=== PATIENT | female | born 1940 | race Caucasian/White ===

== ENCOUNTER → 2020-01-18 10:24 | Outpatient (CLI) | payer MEDICARE, OTHER, SELFPAY ==
--- NOTE | ~2020-01-18 | MR_ITS ---
EXAMINATION: MR brain/brain stem wo/w con EXAM DATE: 01/18/2020 11:22 INDICATION: Left leg tremors for months. Headaches intermittent. TECHNIQUE: Magnetic resonance imaging (MRI) of the brain/brain stem obtained without contrast. Sagit eber T1, axial diffusion, gradient echo (T2*), T1, T2, FLAIR sequences obtained. Patient was then inj ected with 13 cc intravenous Multihance contrast. Axial and coronal postcontrast T1 weighted sequence s obtained. There is no prior study for comparison. FINDINGS: Punctate focus of increased DWI signal in left basal ganglia, probably T2 shine through. Th ere are no areas of restricted diffusion to suggest acute infarction. There is no acute hemorrhage s een on the T2*, a hemosiderin sensitive sequence. No intraparenchymal brain mass lesion. There is mi ld periventricular and subcortical T2/FLAIR signal hyperintensity, nonspecific but probably related t o small vessel ischemic disease (microangiopathy). There are no extra-axial collections. Flow voi ds are seen in the cerebral arteries on the T2-weighted sequences consistent with their expected badillo ncy. Patient has had bilateral ocular lens surgery. Soft tissue is unremarkable. IMPRESSION: Unremarkable brain MRI examination. Reviewed, dictated and finalized at location A.
[2020-01-18 11:05] LABS: Estimated Glomerular Filt Rate > 60
== END ==
PROVIDERS: PCP Family Medicine; Referring Provider Family Medicine; Visit Provider Family Medicine
DX: R25.1 Tremor, unspecified (principal)
CPT/HCPCS: 36415; 70553; A9577

== ENCOUNTER 2020-02-02 09:00 | Outpatient (CLI) | payer MEDICARE, OTHER, SELFPAY ==
--- NOTE | 2020-02-02 10:00 | NEURO_ITS ---
Patient Number: [id number] Impression: # Complains of cramps and continual movement of feet. # Left peroneal amplitude drop with normal nerve conduction study. # Needle/EMG exam revealed neurogenic changes in left EDB. # Higher involvement needs to be ruled out. Nerve Conduction Studies Anti Sensory Summary Table Stim Site NR Peak (ms) P-T Amp (?V) Site1 Site2 Delta-P (ms) Dist (cm) Luciano (m/s) Left Sup Fibular Anti Sensory (Ant Lat Mall) 14 cm 3.5 11.2 14 cm Ant Lat Mall 3.5 16.0 46 Right Sup Fibular Anti Sensory (Ant Lat Mall) 14 cm 3.1 13.4 14 cm Ant Lat Mall 3.1 16.0 52 Left Sural Anti Sensory (Lat Mall) Calf 4.0 7.1 Calf Lat Mall 4.0 16.0 40 Right Sural Anti Sensory (Lat Mall) Calf 4.0 2.2 Calf Lat Mall 4.0 16.0 40 Motor Summary Table Stim Site NR Onset (ms) O-P Amp (mV) Site1 Site2 Delta-0 (ms) Dist (cm) Luciano (m/s) Left Peroneal Motor (Vastus Med) Ankle 5.8 0.3 Popit Ankle 6.9 36.0 52 Popit 12.7 0.6 Right Peroneal Motor (Vastus Med) Ankle 5.9 0.8 Popit Ankle 6.8 37.0 54 Popit 12.7 0.8 Left Tibial Motor (Abd Wallace Brev) Ankle 4.8 5.8 Knee Ankle 7.9 40.0 51 Knee 12.7 2.9 Right Tibial Motor (Abd Wallace Brev) Ankle 4.7 2.3 Knee Ankle 8.7 40.0 46 Knee 13.4 3.0 F Wave Studies NR F-Lat (ms) L-R F-Lat (ms) Left Peroneal (Mrkrs) (EDB) 49.03 2.38 Right Peroneal (Mrkrs) (EDB) 51.41 2.38 Left Tibial (Mrkrs) (Abd Hallucis) 49.65 0.74 Right Tibial (Mrkrs) (Abd Hallucis) 48.91 0.74 EMG Side Muscle Nerve Root Ins Act Fibs Amp Dur Recrt Comment Right AntTibialis Dp Br Fibular L4-5 Nml Nml Nml Nml Nml Right Gastroc Tibial S1-2 Nml Nml Nml Nml Nml Right Fibularis Long Sup Br Fibular L5-S1 Nml Nml Nml Nml Nml Right Flex Dig Long Tibial L5-S2 Nml Nml Nml Nml Nml Right Ext Dig Brev Dp Br Fibular L5, S1 Nml Nml Nml Nml Nml Left AntTibialis Dp Br Fibular L4-5 Nml Nml Nml Nml Nml Left Gastroc Tibial S1-2 Nml Nml Nml Nml Nml Left Fibularis Long Sup Br Fibular L5-S1 Nml Nml Nml Nml Nml Left Flex Dig Long Tibial L5-S2 Nml Nml Nml Nml Nml Left Ext Dig Brev Dp Br Fibular L5, S1 Nml Nml Decr >12ms Reduced Right QuadratusFem QuadFemoris L4-5, S1 Nml Nml Nml Nml Nml Left QuadratusFem QuadFemoris L4-5, S1 Nml Nml Nml Nml Nml MTDD
== END 2020-02-02 09:01 | disposition home or self-care (01) ==
LOC: ANHNEURO 09:02
PROVIDERS: PCP Family Medicine; Visit Provider Family Medicine
DX: M21.372 Foot drop, left foot (principal)
CPT/HCPCS: 95886; 95910

== ENCOUNTER → 2022-04-21 13:13 | Outpatient (CLI) | payer MEDICARE, SELFPAY ==
--- NOTE | ~2022-04-21 | MM_ITS ---
EXAMINATION: MM screening [facility] BI w rebekah HISTORY: Screening TECHNIQUE: Craniocaudal and mediolateral oblique 3-D tomosynthesis images were obtained and synthetic 2-D images were generated. CAD analysis was submitted and interpreted. COMPARISON: Comparison to multiple prior studies sequentially, with oldest reviewed study dated 12/2013. BREAST PARENCHYMAL COMPOSITION: There are scattered areas of fibroglandular density. FINDINGS: There is no evidence of suspicious mass, calcification, or architectural distortion to sugg est malignancy in either breast. There has been no suspicious interval change. IMPRESSION: 1. No mammographic evidence of malignancy. 2. Recommend routine screening mammography in one year. BI-RADS Category 1: Negative Reviewed, dictated and finalized at location A.
== END ==
PROVIDERS: PCP Family Medicine; Visit Provider Family Medicine
DX: Z12.31 Encounter for screening mammogram for malignant neoplasm of breast (principal)
CPT/HCPCS: 77063; 77067

== ENCOUNTER 2022-04-28 11:27 | Outpatient (CLI) | payer MEDICARE, SELFPAY ==
[2022-04-28 19:40] LABS: Alanine Aminotransferase 20 U/L (6-35); Albumin Level 4.2 g/dL (3.5-5.1); Alkaline Phosphatase 100 U/L (38-126); Anion Gap 11 mmol/L (8-16); Aspartate Amino Transferase 34 U/L (14-36); Bilirubin,Total 0.6 mg/dL (0.2-1.3); Blood Urea Nitrogen 25 mg/dL (7-17); Calcium 9.3 mg/dL (8.4-10.2); Carbon Dioxide 24 mmol/L (22-30); Chloride 103 mmol/L (98-107); Estimated Glomerular Filt Rate > 60; Glucose 111 mg/dL (65-110); Potassium 4.1 mmol/L (3.4-5.0); Sodium 138 mmol/L (137-145)
== END 2022-04-28 11:28 | disposition home or self-care (01) ==
LOC: ANHGOSHLAB 11:30
PROVIDERS: PCP Family Medicine; Visit Provider Family Medicine
DX: E03.9 Hypothyroidism, unspecified (principal); I10 Essential (primary) hypertension; Z79.899 Other long term (current) drug therapy
CPT/HCPCS: 36415; 80053; 84443

== ENCOUNTER 2023-04-15 13:04 | Outpatient (CLI) | payer MEDICARE, SELFPAY ==
--- NOTE | ~2023-04-15 | XR_ITS ---
XR chest 2V 04/15/2023 13:22 Indication: Cough Procedure: 2 view chest Comparison: 11/20/2018 Findings: Moderate size hiatal hernia. Heart size normal. No focal air space disease, pulmonary edema , pleural effusion or suspected pneumothorax. Impression: 1: No acute cardiopulmonary disease. Reviewed, dictated and finalized at location B. Impression: 1: No acute cardiopulmonary disease.
== END 2023-04-15 13:05 | disposition home or self-care (01) ==
PROVIDERS: PCP Family Medicine; Visit Provider Family Medicine
DX: R05.9 Cough, unspecified (principal)
CPT/HCPCS: 71046

== ENCOUNTER 2025-01-05 15:40 | Outpatient (CLI) | payer MEDICARE, SELFPAY ==
--- OUTSIDE RECORDS SUMMARY | 2025-01-05 15:43 | XMS_ITS | Clinical Summary ---
Author Organization [facility] Address [address] [place] [address] Care Team Providers Care Program Management Intern Name Role Phone Miriam Gerber MD Primary Care Provider Allergies Active Allergy Reactions Criticality Noted Date Comments Pregabalin Other (See comments) Low 12/03/2021 nightmares Medications lisinopriL (PRINIVIL,ZESTR [place]) 20 mg tablet Take 20 mg by mouth daily 2 Active levothyroxine (SYNTHROID) 88 mcg tablet Take 88 mcg by mouth daily Active traMADoL (ULTRAM) 50 mg tablet Take by mouth every 8 (eight) hours as needed 2 Active fluticasone propionate (FLONASE) 50 mcg/actuation nasal spray INSTILL 1 SPRAY INTO THE NOSTRILS DAILY 2 Active LORazepam (ATIVAN) 0.5 mg tablet Take 0.5 mg by mouth every 6 (six) hours as needed Active acetaminophen-a spirin-caffeine (EXCEDRIN MIGRAINE) 250-250-65 mg per tablet Take 1 tablet by mouth every 6 (six) hours as needed Active acetaminophen (TYLENOL) 500 mg tablet Take 500 mg by mouth every 6 (six) hours as needed for pain Active pseudoephedrine (SUDAFED) 30 mg tabletIndicatio ns:Nasal Congestion Take 30 mg by mouth every 4 (four) hours as needed for congestion Active diclofenac sodium (VOLTAREN) 1 % gel Apply 4 g topically 3 (three) times a day 4 g 3 2 Active amitriptyline (ELAVIL) 25 mg tablet Take one tablet po qhs for one week, then two tablets po qhs 60 tablet 3 2 Active carbidopa-levod opa (SINEMET) 25-100 mg per tabletIndicatio ns:Parkinsonism TAKE 1 TABLET BY MOUTH NIGHTLY 90 tablet 1 3 Active gabapentin (NEURONTIN) 300 mg capsuleIndicati ons:Restless leg syndrome TAKE 1 CAPSULE BY MOUTH EVERY NIGHT 30 capsule 5 3 Active Active Problems Problem Noted Date Diagnosed Date 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 (09/25/2016): MIXED HYPERLIPIDEMIA Hypothyroidism 11/05/2013 Overview (09/26/2016): HYPOTHYROIDISM NOS Restless leg syndrome Fasciculation Surgical History Surgery Date Site/Laterality Comments TOTAL ABDOMINAL HYSTERECTOMY W/ BILATERAL SALPINGOOPHORECTOMY Hysterectomy, total abdominal, BSO CHOLECYSTECTOMY Cholecystectomy Medical History Medical History Date Comments Hx Other Medical vit d deficienc y Hypertension Hypertension Disorder of thyroid Thyroid dise ase Hyperlipidemia Hyperlipidemia Osteoarthritis Osteoarthritis Hypothyroidism hypothyroidism Restless leg syndrome Family History Medical History Relation Name Comments Coronary artery disease Mother 2 Syed nary artery disease; Hyperlipidemia Mother 2 Hyperlipidemi a; Thyroid disease Mother 2 Thyroid diso rder; Thyroid disease Other Family histo ry of Thyroid disease; Relation Name Status Comments Mother 1 Alive Mother 2 Other Social History Tobacco Use Types Packs/Day Years Used Date Smoking Tobacco: Never Tobacco Cessation:Counseling Given: Not Answered Alcohol Use Standard Drinks/Week Comments No 0 (1 standard drink = 0.6 oz pur e alcohol) Comments Unknown Sex and Gender Information Value Date Recorded Sex Assigned at Not on file Legal Sex Female 12:26 AM SURVEILLANCE SYSTEMS ENGINEER Gender Identity Not on file Sexual Orientation Not on file Obstetrics History Last Filed Vital Signs Vital Sign Reading Time Taken Comments Blood Pressure 140/81 08/12/2022 10:53 AM SURVEILLANCE SYSTEMS ENGINEER Pulse 72 08/12/2022 10:53 AM SURVEILLANCE SYSTEMS ENGINEER Temperature - - Respiratory Rate - - Oxygen Saturation 98% 08/12/2022 10:53 AM SURVEILLANCE SYSTEMS ENGINEER Inhaled Oxygen Concentration - - Weight 61.1 kg (134 lb 9.6 oz) 08/12/2022 10:53 AM SURVEILLANCE SYSTEMS ENGINEER Height 157.5 cm (5' 2) 08/12/2022 10:53 AM SURVEILLANCE SYSTEMS ENGINEER Body Mass Index 24.62 08/12/2022 10:53 AM SURVEILLANCE SYSTEMS ENGINEER Plan of Treatment Health Maintenance Due Date Last Done Comments Depression Screening 1940 Fall Risk Assessment 1940 Osteoporosis Screening-Bone Density Scan 1940 Hepatitis B Screening 01/02/1958 Zoster Vaccine (1 of 2) 01/02/1990 Well Visit 65+ 01/02/2005 DTaP/Tdap/Td Vaccine (2 - Tdap) 03/31/2022 2 Pneumococcal vaccine 65+ (2 of 2 - PCV) 11/01/2022 11/01/2021 Covid-19 Vaccine (5 - 2023-2 5 season) 2024 09/28/2021, 04/28/2021, 08/29/2020, Additional history exists Influenza Vaccine (#1) 2025 , 03/02/2019, 03/17/2018, Additional history exists Insurance Care Teams Program Management Intern Relationship Specialty Start Date End Date Miriam Gerber MD PCP - General Family Practice 12/17/20
--- OUTSIDE RECORDS SUMMARY | 2025-01-05 15:43 | XMS_ITS | Clinical Summary ---
Author Organization [facility] Address [address] [place] [address] Phone Care Team Providers Care Tree And Shrub Technician Name Role Phone Adrian Zaragoza MD Primary Care Provider Allergies Active Allergy Reactions Criticality Noted Date Comments Alendronate Sodium Unknown 07/26/2021 Latex Unknown 07/26/2021 Nickel Unknown 07/26/2021 Phenylephrine Unknown 07/26/2021 Pramipexole Unknown 07/26/2021 Pregabalin Unknown 07/26/2021 Ropinirole Unknown 07/26/2021 Medications polyethylene glycol (MIRALAX) Powder Mix the entire bottle with 64 oz of a clear liquid. Use as directed by the office for colonoscopy prep. 1 Bottle 0 5 Active lisinopril (PRINIVIL, ZESTRIL) 20 MG Tablet Take 20 mg by mouth daily. Active levothyroxine (SYNTHROID) 88 MCG Tablet Take 88 mcg by mouth daily. Active traMADol (ULTRAM) 50 MG Tablet Take 50 mg by mouth every 6 hours as needed. Active ferrous sulfate 325 (65 Fe) MG Tablet Take 325 mg by mouth daily. Active fluticasone (FLONASE) 50 MCG/ACT Suspension 1-2 Sprays by Nasal route daily. Use in each nostril as directed. Active hydroCHLOROthia zide 25 MG Tablet Take 25 mg by mouth daily. Active LORazepam (ATIVAN) 0.5 MG Tablet Take 0.5 mg by mouth every 6 hours as needed. Active gabapentin (NEURONTIN) 100 MG Capsule Take 1 Capsule by mouth nightly. 30 Capsule 1 2 Active Active Problems No known active problems Family History Medical History Relation Name Comments Hypertension Maternal Grandmother Relation Name Status Comments Maternal Grandmother Social History Tobacco Use Types Packs/Day Years Used Date Smoking Tobacco: Never Smokeless Tobacco: Never Alcohol Use Standard Drinks/Week Comments Not Currently 0 (1 standard drink = 0.6 oz pur e alcohol) Comments No Sex and Gender Information Value Date Recorded Sex Assigned at Not on file Legal Sex Female 3:48 PM STAFF ANALYST Gender Identity Not on file Sexual Orientation Not on file Last Filed Vital Signs Vital Sign Reading Time Taken Comments Blood Pressure 126/78 08/13/2021 12:56 PM STAFF ANALYST Pulse 61 08/13/2021 12:56 PM STAFF ANALYST Temperature 35.3 C (95.5 F) 08/13/2021 12:56 PM STAFF ANALYST Respiratory Rate 16 08/13/2021 12:56 PM STAFF ANALYST Oxygen Saturation 94% 08/13/2021 12:56 PM STAFF ANALYST Inhaled Oxygen Concentration - - Weight 63.5 kg (140 lb) 08/13/2021 12:56 PM STAFF ANALYST Height 158.8 cm (5' 2.5) 08/13/2021 12:56 PM CS T Body Mass Index 25.2 08/13/2021 12:56 PM STAFF ANALYST Plan of Treatment Health Maintenance Due Date Last Done Comments Hepatitis C Virus (HCV) Screening 1940 TdaP Immunization 1940 Pneumococcal Immunization (50+ years) (1 of 1 - PCV) 01/02/1990 Zoster Immunization (1 of 2) 01/02/1990 Respiratory Syncytial Virus (RSV) Immunization (Adult) (1 - 1-dose 75+ series) 01/02/2015 SARS-COV-2 Immunization ( season) 2024 04/28/2021, 08/29/2020, 08/02/2020 Influenza Immunization (#1) 02/20/202502/20, 03/02/2019, 03/17/2018, Additional history exists DTaP/Tdap/Td Immunization Discontinued 03/31/2012 Hepatitis B Immunization Aged Out No longer eligible based on patient's age to complete this topic Human Papillomavirus (HPV) Immunization Aged Out No longer eligible based on patient's age to complete this topic Meningococcal Immunization (ACWY) Aged Out No longer eligible based on patient's age to complete this topic Rotavirus Immunization Aged Out No lo nger eligible based on patient's age to complete this topic Insurance MEDICARE Care Teams Tree And Shrub Technician Relationship Specialty Start Date End Date Adrian Zaragoza MD [address] [place] [address] PCP - General Family Medicine 09/25/16
--- OUTSIDE RECORDS SUMMARY | 2025-01-05 15:43 | XMS_ITS | Referral Summary ---
Author Organization [facility] Address [address] [place] [address] Care Team Providers Care Checker Name Role Phone Miriam Gerber MD Primary [...] (09/26/2016): HYPOTHYROIDISM NOS Restless leg syndrome Fasciculation Social History Tobacco Use Types Packs/Day Years Used Date Smoking Tobacco: Never Tobacco Cessation:Counseling Given: Not Answered Alcohol Use Standard Drinks/Week Comments No 0 (1 standard drink = 0.6 oz pur e alcohol) Comments Unknown Sex and Gender Information Value Date Recorded Sex Assigned at Not on file Legal Sex Female 12:26 AM CHEESE TESTER Gender Identity Not on file Sexual Orientation Not on file Last Filed Vital Signs Vital Sign Reading Time Taken Comments Blood Pressure 140/81 08/12/2022 10:53 AM CHEESE TESTER Pulse 72 08/12/2022 10:53 AM CHEESE TESTER Temperature - - Respiratory Rate - - Oxygen Saturation 98% 08/12/2022 10:53 AM CHEESE TESTER Inhaled Oxygen Concentration - - Weight 61.1 kg (134 lb 9.6 oz) 08/12/2022 10:53 AM CHEESE TESTER Height 157.5 cm (5' 2) 08/12/2022 10:53 AM CHEESE TESTER Body Mass Index 24.62 08/12/2022 10:53 AM CHEESE TESTER Plan of Treatment Not on file Insurance MEDICARE Care Teams Checker Relationship Specialty Start Date End Date Miriam Gerber MD PCP - General Family Practice 12/17/20
--- OUTSIDE RECORDS SUMMARY | 2025-01-05 15:43 | XMS_ITS | Continuity of Care Document ---
Author Organization [facility] Address [address] [place] [address] [place] [address] Phone Care Team Providers Care Welder 2Nd Shift Name Role Phone Earnest Comer Unavailable Unavailable Procedures Procedure Date Eye Exam & Treatment Refraction Office/outpatient Visit, New Advance Directives Directive Yes / No Effective Date File Name No Information Encounters Encounter Description Practice Location Reason(s) For Visit Diagnoses Date Provider Providers Copied on Encounter [facility], [address] [place] [address] [address], [place], [place], [id number], tel:[phone] SEC [facility] No Information 7-201 0 Nahomi Earnest. [address] [place] [address], [facility], [place]. tel:[phone] Office/outpat ient Visit, [facility], [address] [place] [address] [address], [place], [place], [id number], tel:[phone] SEC [facility] No Information 4-200 9 Krishnasamy Earnest. [address] [place] [address], [facility], [place]. tel:[phone] Referring Provider: Earnest magana, [address] [place] [address], [place], [place], [facility]. tel:[phone] Family History Family Member Type Diagnosis Age At Onset No Information Payers Payer name Insurance type Covered green party ID Authoriza tion(s) Medicare [place] MB [id number] [facility] Commercial BL [id number] Social History Type Description Quantity Date Captured [...]
[2025-01-05 19:20] LABS: Alanine Aminotransferase 19 U/L (6-35); Albumin Level 4.3 g/dL (3.5-5.1); Alkaline Phosphatase 84 U/L (38-126); Anion Gap 10 mmol/L (4-12); Aspartate Amino Transferase 38 U/L (14-36); Bilirubin,Total 0.6 mg/dL (0.2-1.3); Blood Urea Nitrogen 21 mg/dL (7-17); Calcium 9.3 mg/dL (8.4-10.2); Carbon Dioxide 23 mmol/L (22-30); Chloride 97 mmol/L (98-107); Estimated Glomerular Filt Rate > 60; Glucose 107 mg/dL (65-110); Potassium 4.3 mmol/L (3.4-5.0); Sodium 130 mmol/L (137-145); Total Protein 7.3 g/dL (6.3-8.2)
[2025-01-05 19:32] LABS: Thyroid Stimulating Hormone Reflex 0.367 uIU/mL (0.465-4.68)
[2025-01-05 21:35] LABS: Hemoglobin A1C 5.7 % (<5.7)
[2025-01-05 23:28] LABS: Free T4 Free Thyroxine Reflex 1.72 ng/dL (0.78-2.19)
[2025-01-06 07:24] LABS: Total Triiodothyronine (T3) 0.76 NG/ML (0.82-1.58)
== END 2025-01-05 15:41 | disposition home or self-care (01) ==
PROVIDERS: PCP Family Medicine; Visit Provider Family Medicine
DX: E03.9 Hypothyroidism, unspecified (principal); I10 Essential (primary) hypertension; E11.9 Type 2 diabetes mellitus without complications
CPT/HCPCS: 36415; 80053; 83036; 84439; 84443; 84480

== ENCOUNTER 2025-02-24 12:37 | Outpatient (CLI) | payer MEDICARE, SELFPAY ==
--- OUTSIDE RECORDS SUMMARY | 2010-01-15 08:15 | XMS_ITS | Continuity of Care Document ---
Author Organization formerly [facility] Address [address] [place] [address] [place] [address] Phone Care Team Providers Care Earring Maker Name Role Phone Earnest Comer Unavailable Unavailable Procedures Procedure Date Eye Exam & Treatment Refraction Office/outpatient Visit, New Advance Directives Directive Yes / No Effective Date File Name No Information Encounters Encounter Description Practice Location Reason(s) For Visit Diagnoses Date Provider Providers Copied on Encounter [facility], [address] [place] [address] [address], [place], [place], [id number], tel:[phone] SEC [facility] No Information 7-201 0 Nahomi Earnest. [address] [place] [address], [facility][note 3], [place]. tel:[phone] Office/outpat ient Visit, [facility], [address] [place] [address] [address], [place], [place], [id number], tel:[phone] SEC [facility] No Information 4-200 9 Krishnasamy Earnest. [address] [place] [address], [address], [place]. tel:[phone] Referring Provider: Earnest magana, [address] [place] [address], [place], [place], [facility][note 3]. tel:[phone] Family History Family Member Type Diagnosis Age At Onset No Information Payers Payer name Insurance type Covered green party ID Authoriza tion(s) [place] [id number] [facility] Commercial BL [id number] Social History Type Description Quantity Date Captured Comments Sex Female Smoking Status No Information Chief Complaint And Reason For Visit No Information Reason For Referral Reason For Referral No Information History Of Present Illness Encounter Date Complaint History Of Prese nt Illness No Information Functional Status Date Functional Assessmen t No Information Instructions Date Instruction Additional Infor mation No Information Assessments Type Assessment Date No Information Patient Care Teams Name Effective Dates (start - stop) Status Members No Information
--- OUTSIDE RECORDS SUMMARY | 2025-02-24 12:42 | XMS_ITS | Clinical Summary ---
Author Organization [facility] Address [address] [place] [address] Care Team Providers Care Potable Water Treatment Operator Name Role Phone Miriam Gerber MD Primary [...] on file Legal Sex Female 12:26 AM ACCOUNTS PAYABLE OR RECEIVABLE CLERK Gender Identity Not on file Sexual Orientation Not on file Obstetrics History Last Filed Vital Signs Vital Sign Reading Time Taken Comments Blood Pressure 140/81 08/12/2022 10:53 AM ACCOUNTS PAYABLE OR RECEIVABLE CLERK Pulse 72 08/12/2022 10:53 AM ACCOUNTS PAYABLE OR RECEIVABLE CLERK Temperature - - Respiratory Rate - - Oxygen Saturation 98% 08/12/2022 10:53 AM ACCOUNTS PAYABLE OR RECEIVABLE CLERK Inhaled Oxygen Concentration - - Weight 61.1 kg (134 lb 9.6 oz) 08/12/2022 10:53 AM ACCOUNTS PAYABLE OR RECEIVABLE CLERK Height 157.5 cm (5' 2) 08/12/2022 10:53 AM ACCOUNTS PAYABLE OR RECEIVABLE CLERK Body Mass Index 24.62 08/12/2022 10:53 AM ACCOUNTS PAYABLE OR RECEIVABLE CLERK Plan of Treatment Health Maintenance Due Date [...] 03/17/2018, Additional history exists Insurance Care Teams Potable Water Treatment Operator Relationship Specialty Start Date End Date Miriam Gerber MD PCP - General Family Practice 12/17/20
--- OUTSIDE RECORDS SUMMARY | 2025-02-24 12:42 | XMS_ITS | Clinical Summary ---
Author Organization [facility] Address [address] [place] [address] Phone Care Team Providers Care Medical Fee Clerk Name Role Phone Adrian Zaragoza MD Primary [...] on file Legal Sex Female 3:48 PM LAY HEALTH ADVOCATE Gender Identity Not on file Sexual Orientation Not on file Last Filed Vital Signs Vital Sign Reading Time Taken Comments Blood Pressure 126/78 08/13/2021 12:56 PM LAY HEALTH ADVOCATE Pulse 61 08/13/2021 12:56 PM LAY HEALTH ADVOCATE Temperature 35.3 C (95.5 F) 08/13/2021 12:56 PM LAY HEALTH ADVOCATE Respiratory Rate 16 08/13/2021 12:56 PM LAY HEALTH ADVOCATE Oxygen Saturation 94% 08/13/2021 12:56 PM LAY HEALTH ADVOCATE Inhaled Oxygen Concentration - - Weight 63.5 kg (140 lb) 08/13/2021 12:56 PM LAY HEALTH ADVOCATE Height 158.8 cm (5' 2.5) 08/13/2021 12:56 PM CS T Body Mass Index 25.2 08/13/2021 12:56 PM LAY HEALTH ADVOCATE Plan of Treatment Health Maintenance Due Date Last Done Comments Hepatitis C Virus (HCV) Screening 1940 TdaP Immunization 1940 Pneumococcal Immunization (50+ years) (1 of 1 - PCV) 01/02/1990 Zoster Immunization (1 of 2) 01/02/1990 Respiratory Syncytial Virus (RSV) Immunization (Adult) (1 - 1-dose 75+ series) 01/02/2015 Influenza Immunization (#1) 02/20/202502/20, 03/02/2019, 03/17/2018, Additional history exists SARS-COV-2 Immunization ( season) 2025 04/28/2021, 08/29/2020, 08/02/2020 DTaP/Tdap/Td Immunization Discontinued 03/31/2012 Hepatitis B Immunization [...] complete this topic Insurance MEDICARE Care Teams Medical Fee Clerk Relationship Specialty Start Date End Date Adrian Zaragoza MD [address] [place] [address] PCP - General Family Medicine 09/25/16
[2025-02-24 17:56] LABS: Alanine Aminotransferase 17 U/L (6-35); Albumin Level 4.1 g/dL (3.5-5.1); Alkaline Phosphatase 78 U/L (38-126); Anion Gap 8 mmol/L (4-12); Aspartate Amino Transferase 60 U/L (14-36); Bilirubin,Total 0.4 mg/dL (0.2-1.3); Blood Urea Nitrogen 26 mg/dL (7-17); Calcium 9.1 mg/dL (8.4-10.2); Carbon Dioxide 26 mmol/L (22-30); Chloride 99 mmol/L (98-107); Estimated Glomerular Filt Rate > 60; Glucose 97 mg/dL (65-110); Potassium 4.5 mmol/L (3.4-5.0); Sodium 133 mmol/L (137-145); Total Protein 7.0 g/dL (6.3-8.2)
[2025-02-24 18:26] LABS: Thyroid Stimulating Hormone Reflex 0.732 uIU/mL (0.465-4.68)
== END 2025-02-24 12:38 | disposition home or self-care (01) ==
LOC: ANHGOSHLAB 12:38
PROVIDERS: PCP Family Medicine; Visit Provider Family Medicine
DX: E03.9 Hypothyroidism, unspecified (principal); I10 Essential (primary) hypertension; Z79.899 Other long term (current) drug therapy
CPT/HCPCS: 36415; 80053; 84443